=== PATIENT | female | born 1950 | race African-American/Black ===

== ENCOUNTER → 2023-01-29 14:47 | Outpatient (BNVA) | payer MEDICARE, SELFPAY | PROVIDERS: PCP Internal Medicine; Visit Provider Nurse Practitioner Family | DX: R56.9 Unspecified convulsions (principal); F32.A Depression, unspecified | CPT/HCPCS: 99202 ==

== ENCOUNTER → 2023-03-04 15:13 | Outpatient (BNVA) | payer MEDICARE, SELFPAY | PROVIDERS: PCP Internal Medicine; Visit Provider Nurse Practitioner Family | DX: R42 Dizziness and giddiness (principal); R56.9 Unspecified convulsions; R06.83 Snoring; G47.9 Sleep disorder, unspecified; G47.19 Other hypersomnia | CPT/HCPCS: 99212 ==

== ENCOUNTER 2023-06-12 13:59 | Outpatient (AMB) | payer MEDICARE, SELFPAY ==
[2023-06-12 14:01] VITALS: BP 134/90; PULSE 61; O2SAT 97; BMI 24.2
--- NOTE | 2023-06-12 14:01 | A.OFFVIS_ITS ---
Intake Vital Signs 06/12/23 14:01 Height 5 ft 2 in Weight 132 lb 6 oz BMI 24.2 BP 134/90 H Blood Pressure Location Lt brachial Position Sitting Pulse 61 Pulse Source Pulse Oximeter Pulse Oximetry (%) 97 Oxygen Delivery Method Room Air Intake Visit Reasons: 3m follow up Seizure - Confirmed Intake Note: Pt presents as a 3 month f/u for seizures. Pt states I was supposed to have a sleep test but I didn't go. I had to get a pacemaker and then I had a mini stroke. So they did 2 ct scans and It didn't show anything. Pt states this was at [facility]. Pt states she feels dizzy lot and she sleeps alot. Nuclear Operations Specialist Required: No Allergies No Known Allergies Allergy (Verified 06/12/23 14:07) Medication List - Last Reconciled 06/12/23 by VICKIE Murphy brimonidine 0.2% 0 drps ophthalmic (eye) cholecalciferol (vitamin D3) 25 mcg PO DAILY dorzolamide-timolol 22.3-6.8 mg/mL mL ophthalmic (eye) escitalopram oxalate 15 mg (3 x 5 mg) PO DAILY 30 days folic acid 1 mg PO DAILY hydrochlorothiazide 12.5 mg PO DAILY lamotrigine 150 mg PO BID 90 days latanoprost 0.005% 0 drps ophthalmic (eye) levothyroxine mcg PO lisinopril 20 mg PO BID methotrexate sodium 20 mg PO QWEEK netarsudil 0.02% (Rhopressa) 1 drp ophthalmic (eye) QPM edlrx-7z-gyv-epa-fish oil [phone] mg caps PO simvastatin 40 mg PO BEDTIME vit C,Q-Ke-yngmw-lutein-zeaxan 250-90-40-1 mg (PreserVision AREDS-2) 1 tab PO BID HPI HPI Comments History of Present Illness Details 73-yr-old female presents for f/u visit. Pt endorses the following interval medical history changes: Pt reports that she underwent an uneventful pacemaker insertion in February d/t holter results showing intermittent 3rd degree heart block. Then, about a week after, she was dx'd w/ a small stroke following an episode of HTN SBP 160-200s- was diagnosed w/ a small stroke. Head CT was unremarkable. MRI was not done at the time d/t recent pacemaker insertion- however she is now scheduled for f/u head MRI. She was started on ASA- which she took until the initial prescription ran out. She denies any interval seizure activity. She was not able to do HST. Head CT, 04/04/23: FINDINGS: Social Media Marketing Analyst view findings, lines and tubes: None. BRAIN AND EXTRA-AXIAL SPACES: No parenchymal hemorrhage, midline shift, or mass effect. Encephalomalacia is noted in the anterior right frontal lobe, similar to prior. Torres-white matter differentiation is otherwise well preserved with no CT signs of acute infarct. Negative insular ribbon sign. Atherosclerotic vascular calcification of the carotid arteries but negative hyperdense vessel sign. Mild prominence of the ventricles and sulci consistent with parenchymal volume loss. Mild low-density white matter changes. No subarachnoid hemorrhage. No subdural or epidural collection. CALVARIUM, SKULL BASE, AND SOFT TISSUES: No fractures or suspicious bony lesions. Prior right frontal craniotomy. The paranasal sinuses and mastoid air cells are clear. Status-post bilateral lens extraction. The extracranial soft tissues are unremarkable. IMPRESSION: 1. No acute intracranial pathology. 2. Unchanged right frontal encephalomalacia. Head/neck CTA, 04/02/23: FINDINGS: CTA OF THE NECK: Arch: There is a two vessel aortic arch, with common origin of the brachiocephalic artery and left common carotid artery. There is mild atherosclerotic plaque of the aortic arch, but origins of the supra aortic vessels are patent. There is mild narrowing of the right subclavian artery origin due to calcified plaque. There is a focal kink in the proximal left subclavian artery. Right carotid system: Scattered calcification is seen along the common carotid without significant narrowing. There is retropharyngeal course of the distal common carotid. Minimal calcification is seen at the carotid bifurcation, though there is no significant ICA stenosis by NASCET criteria. Left carotid system: The left common carotid artery is normal in caliber with minimal calcification along the mid segment. Calcified plaque is seen at the carotid bifurcation and along the proximal ICA without significant stenosis by NASCET criteria. There is a stjpmi-almf-oqiyslve vertebral artery system. Right vertebral: There is moderate narrowing of the right vertebral artery origin due to calcified plaque. Beyond this, the extracranial vertebral is normal in caliber. Left vertebral: Patent. Other: Soft tissues and bones: No evidence of lymphadenopathy or mass. The thyroid is unremarkable. Visualized lung apices are clear. There is a pacemaker in the left anterior chest wall. Degenerative changes are seen in the cervical spine. CTA OF THE HEAD: Anterior circulation: Calcified plaque is seen along the intracranial ICAs without significant narrowing. The anterior cerebral arteries and bilateral M1 and proximal M2 segments are patent and normal in caliber. Posterior circulation: There is moderate narrowing of the right intradural vertebral due to calcified p laque. The left vertebral is normal in caliber appear the basilar artery, superior cerebellar arteries, and posterior cerebral arteries are patent and normal in caliber. Veins: Major dural venous sinuses are patent. Other: Soft tissues and bones: No midline shift or effacement of the basal cisterns. No space-occupying hemorrhage. There is encephalomalacia in the anterior right frontal lobe. No acute territorial loss of torres-white matter differentiation. There have been lens extractions bilaterally. No significant opacification in the paranasal sinuses or mastoid air cells. IMPRESSION: 1. There is no large vessel occlusion in the [place]. 2. There is moderate narrowing of the right vertebral artery origin as well as the intradural segment due to calcified plaque. Head CT, 04/02/23: FINDINGS: The visualized sinuses are free from disease. The ventricular system and subarachnoid spaces are within normal limits. Right frontal encephalomalacia is stable. There is no intracranial hemorrhage, mass effect, or midline shift. No intra or extra-axial fluid collections are identified. Right frontal craniotomy changes are seen. IMPRESSION: Stable chronic encephalomalacia. There is no acute intracranial abnormality. [facility] Medical History (Updated 06/12/23 @ 14:12 by Mimi Justin CMA) Aortic ectasia Arthritis Depression Dizziness Dyspnea on exertion HTN (hypertension) Hypothyroidism Surgical History (Updated 06/12/23 @ 14:12 by Mimi Justin CMA) History of brain surgery Pacemaker Family History Father Blindness Deaf Social History Alcohol intake: never Patient Tobacco Use Status: Never used Tobacco Review of Systems Const All systems reviewed & are unremarkable except as noted in HPI and below Physical Exam Vital Signs: Last Vital Signs Pulse 61 06/12/23 14:01 BP 134/90 H 06/12/23 14:01 Pulse Ox 97 06/12/23 14:01 Oxygen Delivery Method Room Air 06/12/23 14:01 BMI result Body Mass Index 24.2 Const General: cooperative and no acute distress Orientation/consciousness: patient oriented x3 HEENT Head: Yes normocephalic Resp Effort & Inspection: normal respiratory effort and able to speak in complete sentences Neuro General: patient oriented x3, gait normal and CN's II-XI intact bilaterally Cognition (Neuro): normal cognition Motor exam (neuro): 5/5 motor strength present throughout Psych Appearance: grossly normal Mental Status: mental status grossly normal Speech and movement: Normal speech and movement present Affect: normal affect Attitude: cooperative Thought process: Normal thought process present Thought content: Normal thought content present Insight: Good insight present (Psych) Judgement: Good judgement present (Psych) Assessment & Plan Assessment & Plan (1) Seizure: Code(s): R56.9 - Unspecified convulsions (2) Snoring: Code(s): R06.83 - Snoring (3) Sleep difficulties: Code(s): G47.9 - Sleep disorder, unspecified (4) Excessive daytime sleepiness: Code(s): G47.19 - Other hypersomnia Plan For ? mini-stroke: Reviewed [facility] ER notes and work-up. Resume ASA 81mg qhs. Brain MRI as scheduled. Pt again advised to undergo HST to assess for sleep apnea. For seizure: Continue Lamotrigine 150mg bid Reviewed recent lamotrigine level- normal. For mood and cognition: Continue Escitalopram 15mg qd. Monitor mood/depression. Monitor cognition. f/u in 3 months or sooner prn Medications: New aspirin at bedtime 81 mg PO DAILY 30 days 30 tabs 6RF Refilled lamotrigine 150 mg PO BID 90 days 180 tabs 1RF Coding Level of Care Code Est Pt Level 4 (35452) Diagnoses Seizure R56.9 Snoring R06.83 Sleep difficulties G47.9 Excessive daytime sleepiness G47.19
== END 2023-06-12 14:56 | disposition home or self-care (01) ==
PROVIDERS: Visit Provider Nurse Practitioner Family
DX: R56.9 Unspecified convulsions (principal); R06.83 Snoring; G47.9 Sleep disorder, unspecified; G47.19 Other hypersomnia
CPT/HCPCS: 99214

== ENCOUNTER → 2023-06-12 13:59 | Outpatient (BNVA) | payer MEDICARE, SELFPAY | PROVIDERS: Visit Provider Nurse Practitioner Family | DX: R56.9 Unspecified convulsions (principal); R06.83 Snoring; G47.9 Sleep disorder, unspecified; G47.19 Other hypersomnia | CPT/HCPCS: 99212 ==

== ENCOUNTER 2023-10-01 12:43 | Outpatient (AMB) | payer MEDICARE, SELFPAY ==
--- NOTE | 2023-10-01 13:01 | A.OFFVIS_ITS ---
Intake Vital Signs 10/01/23 13:02 Height 5 ft 2 in Weight 139 lb BMI 25.4 BP 130/92 H Blood Pressure Location Rt brachial Position Sitting Intake Visit Reasons: 3m follow up Seizure / LVM Intake Note: Patient presents for 3 month follow up seizure. Allergies No Known Allergies Allergy (Verified 10/01/23 13:03) Medication List - Last Reconciled 10/01/23 by VICKIE Murphy aspirin 81 mg PO DAILY 30 days brimonidine 0.2% 0 drps ophthalmic (eye) cholecalciferol (vitamin D3) 25 mcg PO DAILY dorzolamide-timolol 22.3-6.8 mg/mL mL ophthalmic (eye) escitalopram oxalate 15 mg (3 x 5 mg) PO DAILY 90 days folic acid 1 mg PO DAILY lamotrigine 150 mg PO BID 90 days latanoprost 0.005% 0 drps ophthalmic (eye) levothyroxine mcg PO methotrexate sodium 20 mg PO QWEEK netarsudil 0.02% (Rhopressa) 1 drp ophthalmic (eye) QPM eufyg-9g-soq-epa-fish oil [phone] mg caps PO simvastatin 40 mg PO BEDTIME vit C,S-Ux-tsyhb-lutein-zeaxan 250-90-40-1 mg (PreserVision AREDS-2) 1 tab PO BID HPI HPI Comments History of Present Illness Details 73-yr-old female presents for f/u visit. Pt has concerns today. Last week, pt ran out of her escitalopram d/t a delay in shipping form her mail order pharmacy. After being off the escitalopram for a few days, she strated to not feel well- nausea and dizziness. She did call the service late last Friday night (spoke to pt at 10:45pm)- and I requested a small refill through her local pharmacy on Sat 09/27 at 6:45am. She states she did call the service again to check on status of refill status and did not hear back from the covering clinician. Once she resumed the escitalopram on Sat 09/27, she started to feel better. She is also concerned that in the past I have not had available slots for urgent appointments- I did recognize this and let her know that we have made adjustments to my schedule to allow for more timely urgent visits. She did have a stroke f/u neurology consult at [facility] in May. She was advised to ungergo brain MRI as scheduled, which showed chronic microangiopathic ischemic changes as well as multiple foci c/w microhemorrhages, and known stable right frontal encephalomalacia and bilateral basal ganglia and cerebellar lacunar infarcts. She was referred to [facility] states she was unawrae of this. Recent CBC, CMP, TSH- NL. Lipids- NL Pt states 1 lab result ordered by [facility] is still pending- results posted but not viewable by me today via the [facility] portal. 08/13/23 12:04 Cholesterol 150 Triglycerides *75 HDL Cholesterol 54 LDL Cholesterol 81 Non HDL Cholestero l 96 She has been having headaches. She can still be dizzy- a couple of times of day- needs to rest No known interval seizures- she has been complaint w/ Lamotrigine. She has f/u with her fretted string instrument repairer next week. 07/15/23, Brain MRI w/o, at [facility]: IMPRESSION: 1. No acute/subacute infarct, mass, or other acute intracranial abnormality. 2. T2/FLAIR hyperintense foci in the white matter, nonspecific but most likely reflecting chronic small vessel disease, increased from prior. 3. Multiple foci of susceptibility artifact, consistent with chronic microhemorrhages. Single new focus of susceptibility artifact in the left occipital lobe. 4. Unchanged right frontal encephalomalacia and bilateral basal ganglia and cerebellar lacunar infarcts. [facility] Medical History (Updated 10/05/23 @ 19:58 by VICKIE Murphy) Arthritis Hypothyroidism Depression Aortic ectasia Dyspnea on exertion HTN (hypertension) Dizziness Surgical History Pacemaker History of brain surgery Family History Father Blindness Deaf Social History Alcohol intake: never Patient Tobacco Use Status: Never used Tobacco Review of Systems Const All systems reviewed & are unremarkable except as noted in HPI and below Physical Exam Vital Signs: Last Vital Signs BP 130/92 H 10/01/23 13:02 BMI result Body Mass Index 25.4 Const General: cooperative and no acute distress Orientation/consciousness: patient oriented x3 HEENT Head: Yes normocephalic Resp Effort & Inspection: normal respiratory effort and able to speak in complete sentences Neuro General: patient oriented x3, gait normal and CN's II-XI intact bilaterally Cognition (Neuro): normal cognition Motor exam (neuro): 5/5 motor strength present throughout Psych Appearance: grossly normal Mental Status: mental status grossly normal Speech and movement: Normal speech and movement present Affect: normal affect Attitude: cooperative Thought process: Normal thought process present Thought content: Normal thought content present Insight: Good insight present (Psych) Judgement: Good judgement present (Psych) Assessment & Plan Assessment & Plan (1) Seizure: Code(s): R56.9 - Unspecified convulsions (2) Depression: Code(s): F32.A - Depression, unspecified (3) Dizziness: Code(s): R42 - Dizziness and giddiness (4) H/O intracranial hemorrhage: Comment: s/p craniotomy in 1994 Code(s): Z86.79 - Personal history of other diseases of the circulatory system (5) H/O: CVA (cerebrovascular accident): Comment: bilateral basal ganglia and cerebellar lacunar infarcts Code(s): Z86.73 - Personal history of transient ischemic attack (TIA), and cerebral infarction without residual deficits Plan Reviewed recent [facility] work-up. Will request complete lab results. Pt advised to undergo sleep study, as untreated sleep apnea can be a/w stroke and HTN. Pt declines at this time. Continue ASA, statin. BP running w/ mildy elevated DBP- today 130/92. Pt states she will f/u w/ her fretted string instrument repairer next week. I did let pt know of memory care clinica referal from [facility]. For seizure: Continue Lamotrigine 150mg bid Recheck lamotrigine level For mood and cognition: Continue Escitalopram 15mg qd. Monitor mood/depression. Monitor cognition. f/u in 3 months or sooner prn Orders: Orders Lamotrigine Lamictal 10/01/23 R56.9 - Unspecified convulsions Medications: Changed From escitalopram oxalate 15 mg (3 x 5 mg) PO DAILY 30 days 90 tabs 3RF To escitalopram oxalate 15 mg (3 x 5 mg) PO DAILY 90 days 270 tabs 3RF Coding Level of Care Code Est Pt Level 4 (16708) Diagnoses Seizure R56.9 Depression F32.A Dizziness R42 H/O intracranial hemorrhage Z86.79 H/O: CVA (cerebrovascular accident) Z86.73
[2023-10-01 13:02] VITALS: BP 130/92; BMI 25.4
== END 2023-10-01 14:09 | disposition home or self-care (01) ==
PROVIDERS: PCP Internal Medicine; Visit Provider Nurse Practitioner Family
DX: R56.9 Unspecified convulsions (principal); F32.A Depression, unspecified; R42 Dizziness and giddiness; Z86.79 Personal history of other diseases of the circulatory system; Z86.73 Personal history of transient ischemic attack (TIA), and cerebral infarction without residual deficits
CPT/HCPCS: 99214

== ENCOUNTER → 2023-10-01 12:43 | Outpatient (BNVA) | payer MEDICARE, SELFPAY | PROVIDERS: PCP Internal Medicine; Visit Provider Nurse Practitioner Family | DX: R56.9 Unspecified convulsions (principal); R42 Dizziness and giddiness; F32.A Depression, unspecified; Z86.79 Personal history of other diseases of the circulatory system; Z86.73 Personal history of transient ischemic attack (TIA), and cerebral infarction without residual deficits | CPT/HCPCS: 99212 ==

== ENCOUNTER 2024-01-08 14:01 | Outpatient (AMB) | payer MEDICARE, SELFPAY ==
[2024-01-08 14:34] VITALS: BP 132/80; PULSE 83; O2SAT 98; BMI 26.0
--- NOTE | 2024-01-08 14:34 | A.OFFVIS_ITS ---
Intake Vital Signs 01/08/24 14:34 Height 5 ft 2 in Weight 142 lb BMI 26.0 BP 132/80 Blood Pressure Location Rt brachial Position Sitting Pulse 83 Pulse Source Pulse Oximeter Pulse Oximetry (%) 98 Oxygen Delivery Method Room Air Intake Visit Reasons: 3 mo f/u - Seizure-LVM Intake Note: Patient presents for 3 month follow up seizures. Patient has not had any seizure episodes, she states she has shortness of breath Allergies No Known Allergies Allergy (Verified 01/08/24 14:41) Medication List - Last Reconciled 01/08/24 by VICKIE Murphy aspirin 81 mg PO DAILY 30 days brimonidine 0.2% 0 drps ophthalmic (eye) carvedilol 6.25 mg PO BID cholecalciferol (vitamin D3) 25 mcg PO DAILY dorzolamide-timolol 22.3-6.8 mg/mL mL ophthalmic (eye) escitalopram oxalate 10 mg (2 x 5 mg) PO DAILY 90 days folic acid 1 mg PO DAILY lamotrigine 150 mg PO BID 90 days latanoprost 0.005% 0 drps ophthalmic (eye) levothyroxine mcg PO losartan 100 mg PO DAILY methotrexate sodium 20 mg PO QWEEK netarsudil 0.02% (Rhopressa) 1 drp ophthalmic (eye) QPM thsgd-5y-npb-epa-fish oil [id number] mg caps PO simvastatin 40 mg PO BEDTIME vit C,K-Bj-xqyyq-lutein-zeaxan 250-90-40-1 mg (PreserVision AREDS-2) 1 tab PO BID HPI HPI Comments History of Present Illness Details 73-yr-old female presents for f/u visit. Pt reports that her BP has been running high- up to 160/100. She has been working w/ Dr Joyner, who has been adjusting her BP regimen. She has just started on carvedilol 6.25mg bid 2 days ago. Today her BP is normotensive- 132/80, HR 83 . She can sometimes has a headache- head feels funny- this is usually a/w higher BP. She can sometimes have transient lightheadedness when moving quicker. She is wondering if she can decrease her escitalopram 15mg qam dose- feels her mood is better. She thinks that some of her mood issues were r/t thinking about the possibility of having to move into her dtrs home (in an in-law apartment)- which is close by, but she has lived in her home for many yrs. Her dtr will be adding an in-law apartment She does still activities of interest- enjoys gardening. She is planning to start walking again. Denies interval seizures. Compliant w/ lamotrigine. [facility] Medical History (Updated 10/05/23 @ 19:58 by VICKIE Murphy) Arthritis Hypothyroidism Depression Aortic ectasia Dyspnea on exertion HTN (hypertension) Dizziness Surgical History Pacemaker History of brain surgery Family History Father Blindness Deaf Social History Alcohol intake: never Patient Tobacco Use Status: Never used Tobacco Physical Exam Vital Signs: Last Vital Signs Pulse 83 01/08/24 14:34 BP 132/80 01/08/24 14:34 Pulse Ox 98 01/08/24 14:34 Oxygen Delivery Method Room Air 01/08/24 14:34 BMI result Body Mass Index 26.0 Const General: cooperative and no acute distress Orientation/consciousness: patient oriented x3 Resp Effort & Inspection: normal respiratory effort and able to speak in complete sentences Neuro General: patient oriented x3 Cranial nerves: Yes CN's II-XII intact bilaterally Cognition (Neuro): normal cognition Psych Appearance: grossly normal Mental Status: mental status grossly normal Speech and movement: Normal speech and movement present Affect: normal affect Attitude: cooperative Assessment & Plan Assessment & Plan (1) Seizure: Code(s): R56.9 - Unspecified convulsions (2) H/O: CVA (cerebrovascular accident): Comment: bilateral basal ganglia and cerebellar lacunar infarcts Code(s): Z86.73 - Personal history of transient ischemic attack (TIA), and cerebral infarction without residual deficits (3) H/O intracranial hemorrhage: Comment: s/p craniotomy in 1994 Code(s): Z86.79 - Personal history of other diseases of the circulatory system (4) Depression: Code(s): F32.A - Depression, unspecified Plan For h/o stroke:. Reviewed rationale for sleep study, as untreated sleep apnea can be a/w stroke and HTN. Pt declines at this time. Continue ASA, statin. Lipid apnel, 07/2023- WNL. BP is normotensive today. F/u w/ her dance coach as scheduled. For seizure: Continue Lamotrigine 150mg bid. Again recheck lamictal level. For mood and cognition: May reduce Escitalopram [id number] qd to 10mg qd. Monitor mood/depression. Monitor cognition. ? f/u in 3-6 months or sooner prn Medications: Changed From escitalopram oxalate 15 mg (3 x 5 mg) PO DAILY 90 days 270 tabs 3RF To escitalopram oxalate 10 mg (2 x 5 mg) PO DAILY 180 tabs 3RF 90 days Coding Level of Care Code Est Pt Level 4 (53562) Diagnoses Seizure R56.9 H/O: CVA (cerebrovascular accident) Z86.73 H/O intracranial hemorrhage Z86.79 Depression F32.A
== END 2024-01-08 15:20 | disposition home or self-care (01) ==
LOC: HO.HSMS 14:01
PROVIDERS: PCP Internal Medicine; Visit Provider Nurse Practitioner Family
DX: R56.9 Unspecified convulsions (principal); Z86.73 Personal history of transient ischemic attack (TIA), and cerebral infarction without residual deficits; Z86.79 Personal history of other diseases of the circulatory system; F32.A Depression, unspecified
CPT/HCPCS: 99214

== ENCOUNTER → 2024-01-08 14:01 | Outpatient (BNVA) | payer MEDICARE, SELFPAY | PROVIDERS: PCP Internal Medicine; Visit Provider Nurse Practitioner Family | DX: R56.9 Unspecified convulsions (principal); F32.A Depression, unspecified; Z86.73 Personal history of transient ischemic attack (TIA), and cerebral infarction without residual deficits; Z86.79 Personal history of other diseases of the circulatory system; Z79.82 Long term (current) use of aspirin; Z79.899 Other long term (current) drug therapy | CPT/HCPCS: 99212 ==

== ENCOUNTER 2024-02-26 11:54 | Outpatient (REF) | payer MEDICARE, SELFPAY ==
[2024-02-29 21:54] LABS: Lamotrigine Lamictal 6.7 mcg/mL (2.5-15.0)
== END 2024-02-26 11:55 | disposition home or self-care (01) ==
LOC: HO.HKASLDS 11:54
PROVIDERS: Visit Provider Nurse Practitioner Family
DX: R56.9 Unspecified convulsions (principal); Z79.899 Other long term (current) drug therapy
CPT/HCPCS: 36415; 80175

== ENCOUNTER 2024-05-12 10:41 | Outpatient (AMB) | payer MEDICARE, SELFPAY ==
--- NOTE | 2024-05-12 10:42 | MHC.OFFVIS ---
Vital Signs 05/12/24 10:43 Height 5 ft 2 in Weight 142 lb BMI 26.0 BP 132/98 H Blood Pressure Location Rt brachial Position Sitting Pulse 60 Pulse Source Pulse Oximeter Pulse Oximetry (%) 100 Oxygen Delivery Method Room Air Intake Visit Reasons: Follow up Seizure-Lvm Intake Note: Patient presents for follow up seizures. patient states her head is weird and still feeling dizzy. Allergies No Known Allergies Allergy (Verified 05/12/24 10:53) Medication List - Last Reconciled 05/12/24 by VICKIE Murphy aspirin 81 mg PO DAILY 30 days brimonidine 0.2% 0 drps ophthalmic (eye) carvedilol 6.25 mg PO BID cholecalciferol (vitamin D3) 25 mcg PO DAILY dorzolamide-timolol 22.3-6.8 mg/mL mL ophthalmic (eye) escitalopram oxalate 5 mg PO DAILY 90 days folic acid 1 mg PO DAILY lamotrigine 150 mg PO BID 90 days latanoprost 0.005% 0 drps ophthalmic (eye) levothyroxine mcg PO losartan 100 mg PO DAILY methotrexate sodium 20 mg PO QWEEK netarsudil 0.02% (Rhopressa) 1 drp ophthalmic (eye) QPM amnka-7l-iiq-epa-fish oil [phone] mg caps PO simvastatin 40 mg PO BEDTIME vit C,I-Mi-xsbna-lutein-zeaxan 250-90-40-1 mg (PreserVision AREDS-2) 1 tab PO BID HPI Comments Details: 74-yr-old female presents for f/u visit. Pt reports that her BP has not been as well-controlled and having episodes of heart racing. Has had BP med changes. Recently was scheduled for stress test but could not do a stress test d/t her seizure tx. Instead, she will have a coronary CT scan and f/u echocardiogram. They have asked her to increase her fluid intake, which she has done. Pt reports she is having more dizziness- feels like her head is fully spinning. This can happen anytime. Not triggered by standing up or rolling over. She is eating and drinking ok. She states she is sleeping too much . May not sleep well at night as she has to wake up at night to void and then cannot fall back asleep. But then she falls asleep during the day for a few hours. She states she has been told she snores. She thinks maybe she had a sleep study or an ambulatory EEG. Denies any recent seizure activity. She feels the escitalopram is not doing anything. She is not sure if she really needs an anti-depressant at this point. [facility] Medical History (Updated 10/05/23 @ 19:58 by VICKIE Murphy) Arthritis Hypothyroidism Depression Aortic ectasia Dyspnea on exertion HTN (hypertension) Dizziness Surgical History Pacemaker History of brain surgery Family History Father Blindness Deaf Social History Alcohol intake: never Patient Tobacco Use Status: Never used Tobacco Review of Systems Const All systems reviewed & are unremarkable except as noted in HPI and below Physical Exam Vital Signs: Last Vital Signs Pulse 60 05/12/24 10:43 BP 132/98 H 05/12/24 10:43 Pulse Ox 100 05/12/24 10:43 Oxygen Delivery Method Room Air 05/12/24 10:43 BMI result Body Mass Index 26.0 Const General: cooperative and no acute distress Orientation/consciousness: patient oriented x3 HEENT Head: Yes normocephalic Resp Effort & Inspection: normal respiratory effort and able to speak in complete sentences Neuro General: patient oriented x3, gait normal and CN's II-XI intact bilaterally Cognition (Neuro): normal cognition Motor exam (neuro): 5/5 motor strength present throughout Psych Appearance: grossly normal Mental Status: mental status grossly normal Speech and movement: Normal speech and movement present Affect: normal affect Attitude: cooperative Thought process: Normal thought process present Thought content: Normal thought content present Insight: Good insight present (Psych) Judgement: Good judgement present (Psych) Assessment & Plan Assessment & Plan (1) Seizure: Code(s): R56.9 - Unspecified convulsions Category: Medical (2) Depression: Code(s): F32.A - Depression, unspecified Category: Medical (3) Dizziness: Code(s): R42 - Dizziness and giddiness Category: Medical Plan For seizure: Continue Lamotrigine 150mg bid. Last Lamotrigene level- 6.7 NL. Recheck lamictal level bafore f/u appt. ? For mood and cognition: May reduce Escitalopram 10mg qd to 5mg qd x's 1 month, then 5mg qod x's 1 month, then stop- written instructions shared w/ pt.. Monitor mood/depression. Monitor cognition. For h/o stroke, HTN, dizziness:. Suggested pt undergo sleep study, as untreated sleep apnea can be a/w stroke and HTN, as pt declines at this time as she has too many appointements at this time. Continue ASA, statin, BP regimen. 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 ? f/u in 6 months or sooner prn Orders: Orders Lamotrigine Lamictal Today R56.9 - Unspecified convulsions Medications: Changed From escitalopram oxalate 10 mg (2 x 5 mg) PO DAILY 90 days 180 tabs 3RF To escitalopram oxalate 1 tab daily x's 1 month, and then 1 tab every other day x's 1 month, then stop. 5 mg PO DAILY 90 days 90 tabs 3RF Refilled lamotrigine 150 mg PO BID 90 days 180 tabs 1RF Coding Level of Care Code Est Pt Level 4 (96303) Diagnoses Seizure R56.9 Depression F32.A Dizziness R42
[2024-05-12 10:43] VITALS: BP 132/98; PULSE 60; O2SAT 100; BMI 26.0
== END 2024-05-12 11:57 | disposition home or self-care (01) ==
PROVIDERS: PCP Internal Medicine; Visit Provider Nurse Practitioner Family
DX: R56.9 Unspecified convulsions (principal); F32.A Depression, unspecified; R42 Dizziness and giddiness
CPT/HCPCS: 99214

== ENCOUNTER → 2024-05-12 10:41 | Outpatient (BNVA) | payer MEDICARE, SELFPAY | PROVIDERS: PCP Internal Medicine; Visit Provider Nurse Practitioner Family | DX: R56.9 Unspecified convulsions (principal); F32.A Depression, unspecified; R42 Dizziness and giddiness | CPT/HCPCS: 99212 ==

== ENCOUNTER 2024-08-19 08:57 | Outpatient (AMB) | payer MEDICARE, SELFPAY ==
[2024-08-19 09:22] VITALS: BP 114/82; BMI 25.2
--- NOTE | 2024-08-19 09:22 | MHC.OFFVIS ---
Vital Signs 08/19/24 09:22 Height 5 ft 2 in Weight 138 lb BMI 25.2 BP 114/82 Blood Pressure Location Rt brachial Position Sitting Intake Visit Reasons: Follow Up Intake Note: Patient presents for follow up. Allergies No Known Allergies Allergy (Verified 08/19/24 09:24) Medication List - Last Reconciled 08/19/24 by VICKIE Murphy aspirin 81 mg PO DAILY 30 days brimonidine 0.2% 0 drps ophthalmic (eye) carvedilol 6.25 mg PO BID carvedilol 25 mg PO BID cholecalciferol (vitamin D3) 25 mcg PO DAILY dorzolamide-timolol 22.3-6.8 mg/mL mL ophthalmic (eye) escitalopram oxalate 5 mg PO DAILY 90 days folic acid 1 mg PO DAILY gabapentin 100 mg PO DAILY lamotrigine 150 mg PO BID 90 days latanoprost 0.005% 0 drps ophthalmic (eye) levothyroxine mcg PO losartan 100 mg PO DAILY methotrexate sodium 20 mg PO QWEEK netarsudil 0.02% (Rhopressa) 1 drp ophthalmic (eye) QPM ingyb-2d-vtm-epa-fish oil [phone] mg caps PO simvastatin 40 mg PO BEDTIME tramadol 50 mg PO DAILY vit C,L-Rj-vctcz-lutein-zeaxan 250-90-40-1 mg (PreserVision AREDS-2) 1 tab PO BID HPI Comments Details: 74-yr-old female presents for f/u visit. Pt reports 5 weeks ago, she underwent planned CABG x?s 4 on 07/15/24 at [facility]. Pt did have post-hospital rehab stay, and has since been discharged home. She is doing out-pt cardiac rehab. Pt does not drive- so takes senior PVTA. She does note that she is still having some muscular chest pain? especially with increased activity, such as cooking. She can cook but the clean up is more difficult. She has recently met w/ [facility], though she is not sure if she afford assistance. Pt reports she is feeling more depressed due to her health issues and needing to move into her dtr's home. She had weaned off the escitalopram after the last visit here, but it was restarted when in rehab.? She is asking if we can retry her back on 20mg qd dose. She denies any interval seizure activity. Is compliant w/ Lamotrigine. [facility] Medical History Arthritis Hypothyroidism Depression Aortic ectasia Dyspnea on exertion HTN (hypertension) Dizziness Surgical History H/O heart surgery Pacemaker History of brain surgery Family History Father Blindness Deaf Social History Alcohol intake: never Patient Tobacco Use Status: Never used Tobacco Physical Exam Vital Signs: Last Vital Signs BP 114/82 08/19/24 09:22 BMI result Body Mass Index 25.2 Const General: cooperative and no acute distress Orientation/consciousness: patient oriented x3 HEENT Head: Yes normocephalic Resp Effort & Inspection: normal respiratory effort and able to speak in complete sentences Neuro General: patient oriented x3, gait normal and CN's II-XI intact bilaterally Cognition (Neuro): normal cognition Motor exam (neuro): 5/5 motor strength present throughout Psych Appearance: grossly normal Mental Status: mental status grossly normal Speech and movement: Normal speech and movement present Affect: normal affect Attitude: cooperative Assessment & Plan Assessment & Plan (1) Seizure: Code(s): R56.9 - Unspecified convulsions Category: Medical (2) Depression: Code(s): F32.A - Depression, unspecified Category: Medical Plan For seizure: Continue Lamotrigine 150mg bid. Will request recent Lamotrigene level report- pt states did at [facility] 2 days ago.. ? For mood and cognition: Increase escitalopram from 10mg qd to 15mg qd x's 4 weeks, then 20mg qd- pt has previously tolertaed this dose well. Monitor mood/depression. Monitor cognition. For h/o stroke, HTN, dizziness:. Futuire considerations- sleep study, pt has previously declined d/t other medical visits/transportation. Continue ASA, statin, BP regimen per cardiology. Continue cardiac rehab. Pace activities. 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 ? f/u in 4 months or sooner prn Medications: New escitalopram oxalate 15mg daily x's 4 weeks, then 20mg daily 15 - 20 mg (1.5 - 2 x 10 mg) PO DAILY 180 tabs 1RF 90 days Refilled lamotrigine 150 mg PO BID 180 tabs 1RF 90 days Coding Level of Care Code Est Pt Level 4 (73234) Diagnoses Seizure R56.9 Depression F32.A
== END 2024-08-19 10:19 | disposition home or self-care (01) ==
PROVIDERS: PCP Internal Medicine; Visit Provider Nurse Practitioner Family
DX: R56.9 Unspecified convulsions (principal); F32.A Depression, unspecified
CPT/HCPCS: 99214

== ENCOUNTER → 2024-08-19 08:57 | Outpatient (BNVA) | payer MEDICARE, SELFPAY | PROVIDERS: PCP Internal Medicine; Visit Provider Nurse Practitioner Family | DX: R56.9 Unspecified convulsions (principal); F32.A Depression, unspecified; R07.9 Chest pain, unspecified; Z95.1 Presence of aortocoronary bypass graft | CPT/HCPCS: 99212 ==

== ENCOUNTER 2024-12-07 13:49 | Outpatient (AMB) | payer MEDICARE, SELFPAY ==
--- NOTE | 2024-12-07 14:08 | MHC.OFFVIS ---
Vital Signs 12/07/24 14:19 Height 5 ft 2 in Weight 142 lb BMI 26.0 BP 140/90 H Blood Pressure Location Lt brachial Position Sitting Pulse 60 Pulse Source Pulse Oximeter Pulse Oximetry (%) 97 Oxygen Delivery Method Room Air Intake Visit Reasons: Follow up Intern Architect Required: No Allergies No Known Allergies Allergy (Verified 12/07/24 14:13) HPI Comments Details: 74-yr-old female presents for f/u visit of seizure and depression. 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 Patient reports since the last visit, she has had worsening dizziness. She states that at [facility], she had a severe bout of dizziness, and was evaluated at [facility] ER. 09/23/[address] did not show any acute changes, only chronic mild prominence of the ventricles and sulci consistent with parenchymal volume loss, mild low-density white matter changes, Post right frontal craniotomy. Metallic foci adjacent to the right frontal bone. 09/22/2024, CT angio head/neck showed severe stenosis in early right superior division MCA branch arising from the right MCA bifurcation, a 3 mm aneurysm is present immediately distal to the stenosis. Proximal right vertebral artery calcification with mild stenosis. EKG was interpreted as nonacute with pacemaker. CXR showed increased markings bilaterally thought to be secondary to poor inspiration we cardiomegaly but without signs of pneumonia. Patient was unable to undergo MRI, as admission occurred during the holiday, and they could not confirm pt's pacemaker MRI compatibility. Patient was advised to continue aspirin, simvastatin, and resume carvedilol and losartan.. Patient was to follow up with Neurology upon discharge. Patient states she is scheduled for brain MRI later this month, but is unable to state who referred her for this. She does not believe she has had a follow-up neurology/neurovascular consult. She is continuing to do her cardiac rehab. Patient states that she is continuing to have episodes of dizziness. The dizziness feels like an off-balance sensation. Like she will fall over. She does not use cane or walking device. She has not recently done vestibular therapy. She denies any interval seizure activity. Her last lamotrigine level in February 2024 was WNL. Patient would also like to discuss weaning off of escitalopram. She is currently taking 20 mg per day. She does not think she needs to take this any longer, as she denies clear signs of depression. She denies loss of interest in usual activities. She does have some sadness and depressed mood related to needing to move out of her home and into her daughter's home, however patient feels that this is appropriate response to the situation. 08/19/2024 HPI: Pt reports 5 weeks ago, she underwent planned CABG x?s 4 on 07/15/24 at [facility]. Pt did have post-hospital rehab stay, and has since been discharged home. She is doing out-pt cardiac rehab. Pt does not drive- so takes senior PVTA. She does note that she is still having some muscular chest pain? especially with increased activity, such as cooking. She can cook but the clean up is more difficult. She has recently met w/ [facility], though she is not sure if she afford assistance. Pt reports she is feeling more depressed due to her health issues and needing to move into her dtr's home. She had weaned off the escitalopram after the last visit here, but it was restarted when in rehab.? She is asking if we can retry her back on 20mg qd dose. She denies any interval seizure activity. Is compliant w/ Lamotrigine. [facility] Medical History (Updated 12/07/24 @ 16:33 by VICKIE Murphy) Arthritis Hypothyroidism Depression Aortic ectasia Dyspnea on exertion HTN (hypertension) Dizziness Surgical History H/O heart surgery Pacemaker History of brain surgery Family History Father Blindness Deaf Social History Alcohol intake: never Patient Tobacco Use Status: Never used Tobacco Physical Exam Vital Signs: Last Vital Signs Pulse 60 12/07/24 14:19 BP 140/90 H 12/07/24 14:19 Pulse Ox 97 12/07/24 14:19 Oxygen Delivery Method Room Air 12/07/24 14:19 BMI result Body Mass Index 26.0 Const General: cooperative and no acute distress Orientation/consciousness: patient oriented x3 HEENT Head: Yes normocephalic Resp Effort & Inspection: normal respiratory effort and able to speak in complete sentences Neuro Other: Gaze evoked nystagmus test: Elicits feeling unwell, not quite dizziness per patient. General: patient oriented x3, gait normal and CN's II-XI intact bilaterally Cranial nerves: Yes Bilaterally intact EOM present and Yes Nystagmus not present Cognition (Neuro): normal cognition Motor exam (neuro): 5/5 motor strength present throughout Psych Appearance: grossly normal Mental Status: mental status grossly normal Speech and movement: Normal speech and movement present Affect: normal affect Attitude: cooperative Results Reviewed Results Reviewed: 09/22/2024, CT Angio Head Hyperacute Stroke, CT Angio Neck Hyperacute Stroke At [facility] COMPARISON: Noncontrast CT head performed concurrently. FINDINGS: CTA OF THE NECK: Arch: There is a two vessel aortic arch, with common origin of the brachiocephalic artery and left common carotid artery. There is mild atherosclerotic plaque of the aortic arch, but origins of the supra aortic vessels are patent. Right carotid system: The common carotid and cervical internal carotid arteries are patent. No stenosis (0%) by NASCET criteria. Scattered right CCA calcification. Left carotid system: The common carotid and cervical internal carotid arteries are patent. There is calcified atherosclerotic plaque at the carotid bifurcation, but no ICA stenosis (0%) by NASCET criteria. Scattered left CCA calcification. Right vertebral: Calcification at the origin with mild stenosis. Left vertebral: Patent. Other: Soft tissues and bones: No evidence of lymphadenopathy or mass. The thyroid is unremarkable. Trace right pleural effusion. Degenerative changes of the cervical spine. CTA OF THE HEAD: Anterior circulation: The intracranial internal carotid arteries are patent. Multifocal ICA calcifications are present. The ICA termini are maintained. The A1 and A2 segments of the anterior cerebral arteries are patent. * The M1 segment of the right middle cerebral artery is patent. M2 segments of the middle cerebral arteries are patent. There is severe stenosis of a separate superior division MCA branch with a 3 mm aneurysm distal to the stenosis. The branch distal to the aneurysm is patent. The M1 and M2 segments of the left middle cerebral artery are patent. Posterior circulation: Calcification in the proximal right vertebral artery is again noted with mild stenosis. The left vertebral artery is patent. The basilar artery and posterior cerebral arteries are patent. Veins: Major dural venous sinuses are patent. Other: Soft tissues and bones: A right frontal lobe resection cavity is present. Patchy regions of diminished density within the supratentorial white matter are nonspecific, but are compatible with chronic microangiopathic/small vessel ischemic change. There have been lens extractions bilaterally. Lobular opacity within the posterior left maxillary sinus. Periapical lucency related to the left second maxillary molar is noted, and this may indicate an odontogenic origin of the maxillary sinus opacification. A right frontoparietal craniotomy is present, and metallic foci are present within the right frontal bone adjacent to the orbit. IMPRESSION: 1. No acute intracranial large vessel occlusion. 2. There is severe stenosis of an early RIGHT superior division MCA branch arising from the right MCA bifurcation. A 3 mm aneurysm is present immediately distal to the stenosis. Neuro endovascular follow-up is recommended. 3. No hemodynamically-significant stenoses of the extracranial internal carotid and vertebral arteries. 09/23/2024, CT Head/Brain W/O Contrast At [facility] COMPARISON: Head CT dated 09/22/2024. FINDINGS: Supervisor Cured Meats view findings, lines and tubes: None. BRAIN AND EXTRA-AXIAL SPACES: Encephalomalacia is seen inferiorly in the right frontal lobe. No parenchymal hemorrhage, midline shift, or mass effect. Torres-white matter differentiation is otherwise well preserved without evidence of acute territorial infarct. Mild prominence of the ventricles and sulci consistent with parenchymal volume loss. Mild low-density white matter changes. No subarachnoid hemorrhage. No subdural or epidural collection. CALVARIUM, SKULL BASE, AND SOFT TISSUES: No fractures or suspicious bony lesions. Status post right frontal craniotomy. The paranasal sinuses and mastoid air cells are clear. Visualized orbits and globes are intact. The extracranial soft tissues are unremarkable. IMPRESSION: No evidence of intracranial hemorrhage, acute territorial infarct or extra-axial fluid collection. Assessment & Plan Assessment & Plan (1) Dizziness: Code(s): R42 - Dizziness and giddiness Category: Medical (2) Seizure: Code(s): R56.9 - Unspecified convulsions Category: Medical (3) Depression: Code(s): F32.A - Depression, unspecified Category: Medical (4) Intracerebral aneurysm: Code(s): I67.1 - Cerebral aneurysm, nonruptured Category: Medical Plan For h/o stroke, HTN, dizziness: Reviewed Aug 2024 hospital notes and workup, which was notable right superior division MCA branch severe stenosis and a 3 mm aneurysm distal to this stenosis. Reviewed red flag signs to seek urgent medical care- such as worse headache of her life. We will request [facility] neuro endovascular surgical consult. Continue ASA, statin, BP regimen per cardiology. Continue cardiac rehab. Pace activities. 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 Future considerations- sleep study, pt has previously declined d/t other medical visits/transportation. For seizure: Continue Lamotrigine 150mg bid. Check CBC, CMP, lamotrigine level. ? For mood and cognition: Patient may slowly wean off of escitalopram- 15 mg q.d. x4 weeks, then 10 mg q.d. x4 weeks, then 5 mg q.d. x4 weeks, then stop. Monitor mood/depression. Monitor cognition. Will follow-up upon review of above and patient to follow-up in clinic in 4-6 months or sooner prn. Orders: Orders Lamotrigine Lamictal Today R42 - Dizziness and giddiness, R56.9 - Unspecified convulsions Complete Blood Count Auto Diff Today R42 - Dizziness and giddiness, R56.9 - Unspecified convulsions Comprehensive Met. Panel Today R42 - Dizziness and giddiness, R56.9 - Unspecified convulsions Referrals Vascular Neurology Referral I67.1 - Cerebral aneurysm, nonruptured, R42 - Dizziness and giddiness, R56.9 - Unspecified convulsions, Z86.73 - Personal history of transient ischemic attack (TIA), and cerebral infarction without residual deficits, Z86.79 - Personal history of other diseases of the circulatory system Medications: New escitalopram oxalate 15mg (5mg + 10mg tab) daily x's 4 weeks, then 10mg daily x's 4 weeks, then 5mg daily x's 4 weeks, then stop, orally daily; 12 weeks 84 tabs 0RF Refilled lamotrigine 150 mg PO BID 90 days 180 tabs 1RF Discontinued escitalopram oxalate 15mg daily x's 4 weeks, then 20mg daily Discontinued Reason: Doctor's Order 15 - 20 mg (1.5 - 2 x 10 mg) PO DAILY 90 days 180 tabs 1RF Coding Level of Care Code Est Pt Level 4 (14010) Diagnoses Dizziness R42 Seizure R56.9 Depression F32.A Intracerebral aneurysm I67.1
[2024-12-07 14:19] VITALS: BP 140/90; PULSE 60; O2SAT 97; BMI 26.0
== END 2024-12-07 15:03 | disposition home or self-care (01) ==
PROVIDERS: PCP Internal Medicine; Visit Provider Nurse Practitioner Family
DX: R42 Dizziness and giddiness (principal); R56.9 Unspecified convulsions; F32.A Depression, unspecified; I67.1 Cerebral aneurysm, nonruptured
CPT/HCPCS: 99214

== ENCOUNTER → 2024-12-07 13:49 | Outpatient (BNVA) | payer MEDICARE, SELFPAY | PROVIDERS: PCP Internal Medicine; Visit Provider Nurse Practitioner Family | DX: R42 Dizziness and giddiness (principal); R56.9 Unspecified convulsions; F32.A Depression, unspecified; I67.1 Cerebral aneurysm, nonruptured | CPT/HCPCS: 99212 ==

== ENCOUNTER 2025-06-06 13:05 | Outpatient (AMB) | payer MEDICARE, SELFPAY ==
[2025-06-06 13:07] VITALS: BP 128/82; PULSE 86; O2SAT 97; BMI 25.3
--- NOTE | 2025-06-06 13:07 | A.OFFVIS_ITS ---
Vital Signs 06/06/25 13:07 Height 5 ft 2 in Weight 138 lb 8 oz BMI 25.3 BP 128/82 Blood Pressure Location Rt brachial Position Sitting Pulse 86 Pulse Source Pulse Oximeter Pulse Oximetry (%) 97 Oxygen Delivery Method Room Air Intake Visit Reasons: 6 mo follow up Intake Note: Patient presents follow up Seizure medication. Hand I Tube Bender Required: No Allergies No Known Allergies Allergy (Verified 06/06/25 13:09) Medication List - Last Reconciled 06/06/25 by VICKIE Murphy aspirin 81 mg PO DAILY 30 days brimonidine 0.2% 0 drps ophthalmic (eye) carvedilol 6.25 mg PO BID carvedilol 25 mg PO BID cholecalciferol (vitamin D3) 25 mcg PO DAILY dorzolamide-timolol 22.3-6.8 mg/mL mL ophthalmic (eye) escitalopram oxalate 5 mg PO DAILY 30 days folic acid 1 mg PO DAILY lamotrigine 150 mg PO BID 90 days latanoprost 0.005% 0 drps ophthalmic (eye) levothyroxine mcg PO losartan 100 mg PO DAILY methotrexate sodium 20 mg PO QWEEK netarsudil 0.02% (Rhopressa) 1 drp ophthalmic (eye) QPM iyddp-0w-jzx-epa-fish oil [phone] mg caps PO simvastatin 40 mg PO BEDTIME vit C,R-Lz-jgfyz-lutein-zeaxan 250-90-40-1 mg (PreserVision AREDS-2) 1 tab PO BID HPI Comments Details: 74-yr-old female presents for f/u visit of seizure and depression. 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 12/21/2024, MRI brain with and without contrast, at [facility]: IMPRESSION: 1. No acute/subacute infarct, mass, hemorrhage, abnormal enhancement, or other acute intracranial abnormality. 2. Stable mild to mode rate T2/FLAIR hyperintense foci in the white matter, nonspecific but most likely reflecting chronic small vessel disease. 3. Multiple foci of susceptibility signal which could be related to chronic microhemorrhages in the setting of hypertension or cerebral amyloid angiopathy in the setting of a normotensive patient, clinical correlation is advised. Patient denies any interval seizure activity. She is compliant with the lamotrigine. Patient has slowly weaning off of escitalopram, now on escitalopram 5 mg daily for the past few months. She states she does not know if they escitalopram is doing for her. She believes that by the beginning of June, she will be finally moving out of her home of 30 years, as her , into an in-law apartment that her daughter has built for her. She states she has headache today, for that she has not had a headache can quite some time. Usually she does not take anything for this, she just tries to rest in a quiet space. She does continue to have episodes of dizziness, like an off-balance or as if she is being spun sensation. She may feel like she will fall, but typically does not fall. She did have a recent fall, which she attributes to losing her balance due to poor footing while walking in her backyard. She states she is drinking 6 glasses of water per day. She states she does not completely avoid salt. Patient has not yet had neuro endovascular consult. 12/07/2024 Patient reports since the last visit, she has had worsening dizziness. She states that at , she had a severe bout of dizziness, and was ev aluated at [facility] Center ER. 09/23/[address] did not show any acute changes, only chronic mild prominence of the ventricles and sulci consistent with parenchymal volume loss, mild low-density white matter changes, Post right frontal craniotomy. Metallic foci adjacent to the right frontal bone. 09/22/2024, CT angio head/neck showed severe stenosis in early right superior division MCA branch arising from the right MCA bifurcation, a 3 mm aneurysm is present immediately distal to the stenosis. Proximal right vertebral artery calcification with mild stenosis. EKG was interpreted as nonacute with pacemaker. CXR showed increased markings bilaterally thought to be secondary to poor inspiration we cardiomegaly but without signs of pneumonia. Patient was unable to undergo MRI, as admission occurred during the holiday, and they could not confirm pt's pacemaker MRI compatibility. Patient was advised to continue aspirin, simvastatin, and resume carvedilol and losartan.. Patient was to follow up with Neurology upon discharge. Patient states she is scheduled for brain MRI later this month, but is unable to state who referred her for this. She does not believe she has had a follow-up neurology/neurovascular consult. She is continuing to do her cardiac rehab. Patient states that she is continuing to have episodes of dizziness. The dizziness feels like an off-balance sensation. Like she will fall over. She does not use cane or walking device. She has not recently done vestibular therapy. She denies any interval seizure activity. Her last lamotrigine level in February 2024 was WNL. Patient would also like to discuss weaning off of escitalopram. She is currently taking 20 mg per day. She does not think she needs to take this any longer, as she denies clear signs of depression. She denies loss of interest in usual activities. She does have some sadness and depressed mood related to needing to move out of her home and into her daughter's home, however patient feels that this is appropriate response to the situation. 08/19/2024 HPI: Pt reports 5 weeks ago, she underwent planned CABG x?s 4 on 07/15/24 at [facility]. Pt did have post-hospital rehab stay, and has since been discharged home. She is doing out-pt cardiac rehab. Pt does not drive- so takes senior [employer]. She does note that she is still having some muscular chest pain? especially with increased activity, such as cooking. She can cook but the clean up is more difficult. She has recently met w/ [facility], though she is not sure if she afford assistance. Pt reports she is feeling more depressed due to her health issues and needing to move into her dtr's home. She had weaned off the escitalopram after the last visit here, but it was restarted when in rehab.? She is asking if we can retry her back on 20mg qd dose. She denies any interval seizure activity. Is compliant w/ Lamotrigine. [facility] Medical History Arthritis Hypothyroidism Depression Aortic ectasia Dyspnea on exertion HTN (hypertension) Dizziness Surgical History H/O heart surgery Pacemaker History of brain surgery Family History Father Blindness Deaf Social History Alcohol intake: never Patient Tobacco Use Status: Never used Tobacco Physical Exam Vital Signs: Last Vital Signs Pulse 86 06/06/25 13:07 BP 128/82 06/06/25 13:07 Pulse Ox 97 06/06/25 13:07 Oxygen Delivery Method Room Air 06/06/25 13:07 BMI result Body Mass Index 25.3 Const General: cooperative and no acute distress Orientation/consciousness: patient oriented x3 HEENT Head: Yes normocephalic Resp Effort & Inspection: normal respiratory effort and able to speak in complete sentences Neuro General: patient oriented x3, gait normal and CN's II-XI intact bilaterally Cranial nerves: Yes Bilaterally intact EOM present and Yes Nystagmus not present Cognition (Neuro): normal cognition Motor exam (neuro): 5/5 motor strength present throughout Psych Appearance: grossly normal Mental Status: mental status grossly normal Speech and movement: Normal speech and movement present Affect: normal affect Attitude: cooperative Results Reviewed Results Reviewed: 09/22/2024, CT Angio Head Hyperacute Stroke, CT Angio Neck Hyperacute Stroke At [facility] COMPARISON: Noncontrast CT head performed concurrently. FINDINGS: CTA OF THE NECK: Arch: There is a two vessel aortic arch, with common origin of the brachiocephalic artery and left common carotid artery. There is mild atherosclerotic plaque of the aortic arch, but origins of the supra aortic vessels are patent. Right carotid system: The common carotid and cervical internal carotid arteries are patent. No stenosis (0%) by NASCET criteria. Scattered right CCA calcification. Left carotid system: The common carotid and cervical internal carotid arteries are patent. There is calcified atherosclerotic plaque at the carotid bifurcation, but no ICA stenosis (0%) by NASCET criteria. Scattered left CCA calcification. Right vertebral: Calcification at the origin with mild stenosis. Left vertebral: Patent. Other: Soft tissues and bones: No evidence of lymphadenopathy or mass. The thyroid is unremarkable. Trace right pleural effusion. Degenerative changes of the cervical spine. CTA OF THE HEAD: Anterior circulation: The intracranial internal carotid arteries are patent. Multifocal ICA calcifications are present. The ICA termini are maintained. The A1 and A2 segments of the anterior cerebral arteries are patent. * The M1 segment of the right middle cerebral artery is patent. M2 segments of the middle cerebral arteries are patent. There is severe stenosis of a separate superior division MCA branch with a 3 mm aneurysm distal to the stenosis. The branch distal to the aneurysm is patent. The M1 and M2 segments of the left middle cerebral artery are patent. Posterior circulation: Calcification in the proximal right vertebral artery is again noted with mild stenosis. The left vertebral artery is patent. The basilar artery and posterior cerebral arteries are patent. Veins: Major dural venous sinuses are patent. Other: Soft tissues and bones: A right frontal lobe resection cavity is present. Patchy regions of diminished density within the supratentorial white matter are nonspecific, but are compatible with chronic microangiopathic/small vessel ischemic change. There have been lens extractions bilaterally. Lobular opacity within the posterior left maxillary sinus. Periapical lucency related to the left second maxillary molar is noted, and this may indicate an odontogenic origin of the maxillary sinus opacification. A right frontoparietal craniotomy is present, and metallic foci are present within the right frontal bone adjacent to the orbit. IMPRESSION: 1. No acute intracranial large vessel occlusion. 2. There is severe stenosis of an early RIGHT superior division MCA branch arising from the right MCA bifurcation. A 3 mm aneurysm is present immediately distal to the stenosis. Neuro endovascular follow-up is recommended. 3. No hemodynamically-significant stenoses of the extracranial internal carotid and vertebral arteries. 09/23/2024, CT Head/Brain W/O Contrast At [facility] COMPARISON: Head CT dated 09/22/2024. FINDINGS: Stock Roller view findings, lines and tubes: None. BRAIN AND EXTRA-AXIAL SPACES: Encephalomalacia is seen inferiorly in the right frontal lobe. No parenchymal hemorrhage, midline shift, or mass effect. Torres-white matter differentiation is otherwise well preserved without evidence of acute territorial infarct. Mild prominence of the ventricles and sulci consistent with parenchymal volume loss. Mild low-density white matter changes. No subarachnoid hemorrhage. No subdural or epidural collection. CALVARIUM, SKULL BASE, AND SOFT TISSUES: No fractures or suspicious bony lesions. Status post right frontal craniotomy. The paranasal sinuses and mastoid air cells are clear. Visualized orbits and globes are intact. The extracranial soft tissues are unremarkable. IMPRESSION: No evidence of intracranial hemorrhage, acute territorial infarct or extra-axial fluid collection. Assessment & Plan Assessment & Plan (1) Dizziness: Code(s): R42 - Dizziness and giddiness Category: Medical (2) Seizure: Code(s): R56.9 - Unspecified convulsions Category: Medical (3) Depression: Code(s): F32.A - Depression, unspecified Category: Medical (4) Intracerebral aneurysm: Code(s): I67.1 - Cerebral aneurysm, nonruptured Category: Medical (5) H/O: CVA (cerebrovascular accident): Comment: bilateral basal ganglia and cerebellar lacunar infarcts Code(s): Z86.73 - Personal history of transient ischemic attack (TIA), and cerebral infarction without residual deficits Category: Medical (6) H/O intracranial hemorrhage: Comment: s/p craniotomy in 1994 Code(s): Z86.79 - Personal history of other diseases of the circulatory system Category: Medical Plan For h/o stroke, HTN, dizziness: Aug 2024 hospital notes and workup, were notable right superior division MCA branch severe stenosis and a 3 mm aneurysm distal to this stenosis. Reviewed red flag signs to seek urgent medical care- such as worse headache of her life. We will follow-up on request [facility] neuro endovascular surgical consult Continue ASA, statin, BP regimen per cardiology. * Patient currently normotensive Continue cardiac rehab exercises Pace activities. 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 Discussed sleep study, however patient is not interested at this time. Future considerations- sleep study, pt has previously declined d/t other medical visits/transportation. For seizure: Continue Lamotrigine 150mg bid. Check CBC, CMP, lamotrigine level today For mood and cognition: Patient advised to continue on escitalopram 5 mg daily for the next few months, as she will be moving from her home to her daughter's home in the near future. Monitor mood/depression. Monitor cognition. Consider MMSE at follow-up. Will follow-up upon review of above and patient to follow-up in clinic in 4-6 months or sooner prn. Medications: Refilled lamotrigine 150 mg PO BID 180 tabs 1RF 90 days Discontinued escitalopram oxalate Discontinued Reason: Doctor's Order 15mg (5mg + 10mg tab) daily x's 4 weeks, then 10mg daily x's 4 weeks, then 5mg daily x's 4 weeks, then stop, orally daily; 12 weeks 84 tabs 0RF Coding Level of Care Code Est Pt Level 4 (54128) Diagnoses Dizziness R42 Seizure R56.9 Depression F32.A Intracerebral aneurysm I67.1 H/O: CVA (cerebrovascular accident) Z86.73 H/O intracranial hemorrhage Z86.79
--- OUTSIDE RECORDS SUMMARY | 2025-06-06 13:16 | XMS_ITS | Clinical Summary ---
Author Organization [facility] Address [address] [place] [address] Care Team Providers Care Applied Researcher Name Role Phone Unavailable Primary Care Provider Unavailabl e Social History Tobacco Use Types Packs/Day Years Used Date Smoking Tobacco: Never Assessed Comments Unknown Sex and Gender Information Value Date Recorded Sex Assigned at Not on file Legal Sex Female 2:43 PM EDT Gender Identity Not on file Sexual Orientation Not on file Plan of Treatment Health Maintenance Due Date Last Done Comments Hepatitis C Virus Screening 1950 DTaP/Tdap/Td Vaccines (1 - Tdap) 1970 Mammogram 1991 Colonoscopy 1996 Pneumococcal Vaccines 50+ (1 of 1 - PCV) 2001 Zoster (Shingles) Vaccine (1 of 2) 2001 DXA Bone Density (Females,Ag es 65 and older) 2016 COVID-19 Vaccine ( - 2023-2 5 season) 2024 Influenza Vaccine 05/27/2025 RSV Vaccine 60 years and old er and Patients (1 - 1-dose 75+ series) 2026 Hepatitis B Vaccines Aged Out No long er eligible based on patient's age to complete this topic Insurance [address] [place], [place] [id number] MEDICARE
--- OUTSIDE RECORDS SUMMARY | 2025-06-06 13:16 | XMS_ITS | Clinical Summary ---
Author Organization [address] [place] [address] Address [address] [place] [address] Phone Care Team Providers Care Automatic Spooler Operator Name Role Phone Nora Riddle MD Primary Care Provider Allergies No known active allergies Medications aspirin 81 mg EC tablet Take 1 Tablet by mouth daily. Active brimonidine (ALPHAGAN) 0.2 % ophthalmic solution 1 Drop 2 times daily. Active cholecalciferol (VITAMIN D-3) 25 mcg (1,000 unit) tablet Take by mouth. Active dorzolamide-zoe lol, PF, 2-0.5 % dropperette apply to the eye. Active escitalopram (LEXAPRO) 5 mg tablet Take 3 Tablets by mouth daily. Active folic acid (FOLVITE) 1 mg tablet Take 1 mg by mouth daily. Active lamoTRIgine (LaMICtal) 150 mg tablet Take 150 mg by mouth 2 times daily. Active latanoprost (XALATAN) 0.005 % ophthalmic solution 1 Drop at bedtime. Active levothyroxine (SYNTHROID, LEVOTHROID) 100 mcg tablet Take 100 mcg by mouth 5 Times Weekly. Active methotrexate 2.5 mg tablet Take 6 Tablets by mouth once a week. On friday Active vit C/E/Zn/coppr/lut ein/zeaxan (PRESERVISION AREDS-2 ORAL) Take 1 Tablet by mouth 2 times daily. Active netarsudiL (Rhopressa) 0.02 % drops apply 1 Drop to the eye at bedtime. Active omega 3-amj-hjo-fish oil 850-1,400 mg capsule Take by mouth daily. Active simvastatin (ZOCOR) 40 mg tablet Take 40 mg by mouth at bedtime. Active losartan (COZAAR) 100 mg tablet Take 1 tablet (100 mg total) by mouth 1 (one) time each day. 90 tablet 3 4 Active carvediloL (COREG) 25 mg tablet Take 1 tablet (25 mg total) by mouth 2 (two) times a day with meals. 180 tablet 3 4 Active gabapentin (NEURONTIN) 100 mg capsule Take 2 capsules (200 mg total) by mouth 3 (three) times a day. Active Encounters Date Type Department Care Team Description 04/25/2025 7:45 AM EDT Ancillary Procedure [facility] [address] [facility] [address] [place] [address] 04/18/2025 Telephone Ltac, Located Within [facility] [address] [facility] [address] [place] [address] Paul Scales [place] Results (CXR) 04/15/2025 8:42 AM EDT - 04/15/2025 11:59 PM EDT Hospital Encounter [facility] Xray [address] [place] [id number] Other chest pain Discharge Disposition: Home or Self Care 04/13/2025 9:20 AM EDT Office Visit Ltac, Located Within [facility] [address] [facility] [address] [place] [address] Anmol Joyner MD Coronary artery disease involving modoc coronary artery of modoc heart without angina pectoris (Primary Dx); Other chest pain 04/13/2025 8:00 AM EDT Ancillary Procedure [facility], Located [facility] [address] [facility] [address] [place] [address] Encounter for adjustment or management of cardiac device from Last 3 Months Medical History Medical History Date Comments CVA (cerebral vascular accid ent) ([facility] V24, [facility] V28) DX:CVA (cerebral vascular a ccident) ([facility]) Epilepsy ([facility] V24, [facility] V28) DX:Epilepsy ([facility]) Hypothyroidism DX:Hypothyroidis m Major depression in partial remission ([facility] V24) 01/25/2022 DX:Major depression in parti al remission ([facility]) PMR (polymyalgia rheumatica) ([facility] V24) DX:PMR (polymyalgia rheumati ca) ([facility]) Social History Tobacco Use Types Packs/Day Years Used Date Smoking Tobacco: Never Smokeless Tobacco: Never Alcohol Use Standard Drinks/Week Comments Never 0 (1 standard drink = 0.6 oz pur e alcohol) Comments Unknown Sex and Gender Information Value Date Recorded Sex Assigned at Not on file Legal Sex Female 5:40 AM EST Gender Identity Not on file Sexual Orientation Not on file Obstetrics History Last Filed Vital Signs Vital Sign Reading Time Taken Comments Blood Pressure 150/90 04/13/2025 9:12 AM EDT Pulse 80 04/13/2025 9:12 AM EDT Temperature - - Respiratory Rate - - Oxygen Saturation 97% 04/13/2025 9:12 AM EDT Inhaled Oxygen Concentration - - Weight 66.2 kg (146 lb) 04/13/2025 9:12 AM EDT Height 154.9 cm (5' 1 ) 04/13/2025 9:12 AM EDT Body Mass Index 27.59 04/13/2025 9:12 AM EDT Plan of Treatment Upcoming Encounters Date Type Department Care Team (Late st Contact Info) Description 04/13/2026 9:00 AM EDT Ancillary Procedure [facility] [address] [facility] [address] [place] [address] Health Maintenance Due Date Last Done Comments Breast Cancer Screening 1950 DTaP,Tdap,and Td Vaccines (1 - Tdap) 1970 Pneumococcal Vaccine: 50+ Years (2 of 2 - PCV) 07/04/2011 07/04/2010 Colorectal Cancer Screening: Colonoscopy 09/29/2022 Falls Risk Assessment 09/29/2022 Hepatitis C Screening 09/29/2022 Medicare Annual Wellness Visit 09/29/2022 Osteoporosis Screening (Bone Density Screening) 09/29/2022 Social Influencers of Health Screening 09/29/2022 COVID-19 Vaccine ( season) 2024 07/17/2023, 08/10/2022, 02/08/2022, Additional history exists Depression Screening 10/27/2024 Influenza Vaccine (#1) 2025 2, 06/29/2022, 08/04/2015, Additional history exists Hypertension/CHF/CAD Annual BMP Blood Test 04/15/2026 04/15/2025 RSV Immunization Adult Patients (1 - 1-dose 75+ series) 2026 Cholesterol Screening (Lipid Panel) 04/15/2030 04/15/2025 Zoster Vaccines Completed 02/20/2024, 01/30/2023 HIB Vaccines Aged Out No longer eligi ble based on patient's age to complete this topic HPV Vaccines Aged Out No longer eligi ble based on patient's age to complete this topic Hepatitis A Vaccines Aged Out No long er eligible based on patient's age to complete this topic Hepatitis B Vaccines Aged Out No long er eligible based on patient's age to complete this topic IPV Vaccines Aged Out No longer eligi ble based on patient's age to complete this topic MMR Vaccines Aged Out No longer eligi ble based on patient's age to complete this topic Meningococcal ACWY Vaccine Aged Out N o longer eligible based on patient's age to complete this topic Meningococcal B Vaccine Aged Out No l onger eligible based on patient's age to complete this topic RSV Immunization Patients Under 20 months Aged Out No longer eligible based on patient's age to complete this topic Varicella Vaccines Aged Out No longer eligible based on patient's age to complete this topic Medical Devices Implanted Type Area Casting House Worker Device Identifier Shelf Expiration Date Model / Serial / Lot Medt-Card Maurice Xt Dr Doyle [id number] Implanted: (Quantity not on file) Cardiac Pacemaker [employer] - CARDIAC RHYTH-CRDM MAURICE XT DR DOYLE [id number] / [id number] / Medt-Card Maurice Xt Dr Doyle [id number] Implanted: (Quantity not on file) Cardiac Pacemaker [employer] - CARDIAC RHYTH-CRDM MAURICE XT DR DOYLE / [id number] / Procedures Procedure Name Priority Date/Time Associated Diagnosis Comments CARDIAC DEVICE CHECK- REMOTE- MURJ Routine 04/25/2025 7:43 AM EDT XR CHEST 2 VIEWS Routine 04/15/2025 8:53 AM EDT Other chest pain CBC WITH AUTO DIFFERENTIAL Routine 04/15/2025 8:36 AM EDT Presence of combination internal cardiac defibrillator (ICD) and pacemaker Coronary artery disease due to lipid rich plaque LIPID PANEL WITH REFLEX TO DIRECT LDL Routine 04/15/2025 8:36 AM EDT Coronary artery disease involving modoc coronary artery of modoc heart without angina pectoris BASIC METABOLIC PANEL Routine 04/15/2025 8:36 AM EDT Coronary artery disease involving modoc coronary artery of modoc heart without angina pectoris CBC AND DIFFERENTIAL Routine 04/15/2025 8:36 AM EDT Presence of combination internal cardiac defibrillator (ICD) and pacemaker Coronary artery disease due to lipid rich plaque CARDIAC DEVICE CHECK- IN CLINIC- MURJ Routine 04/13/2025 8:07 AM EDT Encounter for adjustment or management of cardiac device from Last 3 Months Results * Cardiac device check - Remote- MURJ (04/25/2025 7:43 AM EDT) Date Time Interrogation Session [id number] CV DEVICE CHECK Type Interrogation Session Remote CV DEVICE CHECK Implantable Pulse Generator Casting House Worker MDT CV DEVICE CHECK Implantable Pulse Generator Type IPG CV DEVICE CHECK Implantable Pulse Generator Model Maurice XT MRI [id number] CV DEVICE CHECK Implantable Pulse Generator Serial Number [id number] CV DEVICE CHECK Implantable Pulse Generator Implant Date 20230321 CV DEVICE CHECK Battery Remaining Longevity 121.0 CV DEVICE CHECK Battery Voltage 3.020 CV D EVICE CHECK Battery SURVEY PARTY CHIEF Trigger 2.625 CV DEVICE CHECK Battery Status Middle of Service CV DEVICE CHECK Bulmaro Statistic RA Percent Paced 34.46 CV DEVICE CHECK Bulmaro Statistic RV Percent Paced 99.48 CV DEVICE CHECK Atrial Tachy Statistic AT/AF Erie Percent 0.00 CV DEVICE CHECK Lead Channel Sensing Intrinsic Amplitude 1.875 CV DEVICE CHECK Lead Channel Setting Sensing Sensitivity 0.60 CV DEVICE CHECK Lead Channel Impedance Value 399 CV DEVICE CHECK Lead Channel Pacing Threshold Amplitude 0.625 CV DEVICE CHECK Lead Channel Pacing Threshold Pulse Width 0.4 CV DEVICE CHECK Lead Channel RA Pacing Threshold Date 2025-04-11 CV DEVICE CHECK Lead Channel Setting Pacing Amplitude 1.750 CV DEVICE CHECK Lead Channel Setting Pacing Pulse Width 0.4 CV DEVICE CHECK Lead Channel Sensing Intrinsic Amplitude 2.875 CV DEVICE CHECK Lead Channel Setting Sensing Sensitivity 0.90 CV DEVICE CHECK Lead Channel Impedance Value 475 CV DEVICE CHECK Lead Channel Pacing Threshold Amplitude 0.625 CV DEVICE CHECK Lead Channel Pacing Threshold Pulse Width 0.4 CV DEVICE CHECK Lead Channel RV Pacing Threshold Date 2025-04-11 CV DEVICE CHECK Lead Channel Setting Pacing Amplitude 2.000 CV DEVICE CHECK Lead Channel Setting Pacing Pulse Width 0.4 CV DEVICE CHECK Bulmaro Setting Mode (NBG Code) DDDR CV DEVICE CHECK Bulmaro Setting Lower Rate Limit 50 CV DEVICE CHECK Bulmaro Setting AT Mode Switch Rate 171 CV DEVICE CHECK Bulmaro Setting Maximum Tracking Rate 130 CV DEVICE CHECK Bulmaro Setting Maximum Sensor Rate 130 CV DEVICE CHECK Bulmaro Setting PAV Delay 180 CV DEVICE CHECK Bulmaro Setting ANGIE Delay 150 CV DEVICE CHECK Zone Setting Type Category AT/AF CV DEVICE CHECK Rate 171 CV DEVICE CHECK Therapies Some Rx Off CV DEVIC E CHECK Zone Setting Status Monitor CV DEVICE CHECK Zone ID 2 CV DEVICE CHECK Zone Setting Type Category VT CV DEVICE CHECK Rate 150 CV DEVICE CHECK Zone Setting Status ENABLED CV DEVICE CHECK Zone ID 6 CV DEVICE CHECK Date of Service 2025-07-04 CV DEVICE CHECK Anatomical Region Laterality Modality Device Interroga tion 04/11/2025 10:1 3 PM EDT Impressions 04/25/2025 7:37 AM EDT Normal Remote: No Events * Normal Device Function * Alerts or events: None * Battery: OK, 10.08 yrs * Sensing, impedance and thresholds reviewed * Programmed parameters reviewed * Presenting rhythm reviewed * Heart Rate Histograms reviewed * No significant changes noted Narrative Procedure Note Douglas Palma MD - 04/25/2025 IMPRESSION: Normal Remote: No Events * Normal Device Function * Alerts or events: None * Battery: OK, 10.08 yrs * Sensing, impedance and thresholds reviewed * Programmed parameters reviewed * Presenting rhythm reviewed * Heart Rate Histograms reviewed * No significant changes noted Douglas Palma MD CV IMPLANTABLE CARDIAC DEVICE PROCEDURES Final Result * XR Chest 2 Views (04/15/2025 8:53 AM EDT) Anatomical Region Laterality Modality Body Radiographic Georgina ging 04/15/2025 12:2 1 PM EDT Impressions 04/15/2025 12:22 PM EDT No acute pulmonary disease. Cardiomegaly, stable since 03/28/2019. The patient is seen to have undergone placement of a dual-chamber cardiac pacemaker, as well as sternotomy and CABG, since the prior study. Code 82915 -------- FINAL REPORT -------- Dictated By: Aj Haider Dictated Date: 04/15/2025 12:21 ET Assigned Physician: Aj Haider Reviewed and Electronically Signed By: Aj Haider Signed Date: 04/15/2025 12:22 ET Workstation ID: [id number] Transcribed By: Self Edit Transcribed Date: 04/15/2025 12:21 ET Narrative 04/15/2025 12:22 PM EDT HISTORY: The patient is a 74-year-old female with chest pain. FINDINGS: PA and lateral radiographs of the chest demonstrate that a dual- chamber cardiac pacemaker has been placed since the prior study of 03/28/2019 with the generator overlying the left mid lung and its leads appearing intact and in good position in the right atrium and right ventricle. The patient is also seen to have undergone sternotomy and coronary artery bypass surgery since the prior study. Again demonstrated are degenerative changes of the thoracic spine. The cardiac silhouette remains mildly enlarged. The aortic knob is calcified. The lungs and costophrenic angles are clear. Procedure Note Aj Haider MD - 04/15/2025 HISTORY: The patient is a 74-year-old female with chest pain. FINDINGS: PA and lateral radiographs of the chest demonstrate that adual-chamber cardiac pacemaker has been placed since the prior study of03/28/2019 with the generator overlying the left mid lung and its leadsappearing intact and in good position in the right atrium and rightventricle. The patient is also seen to have undergone sternotomy andcoronary artery bypass surgery since the prior study. Again demonstratedare degenerative changes of the thoracic spine. The cardiac silhouetteremains mildly enlarged. The aortic knob is calcified. The lungs andcostophrenic angles are clear. IMPRESSION: No acute pulmonary disease. Cardiomegaly, stable since 03/28/2019. Thepatient is seen to have undergone placement of a dual-chamber cardiacpacemaker, as well as sternotomy and CABG, since the prior study. Code 53924 -------- FINAL REPORT -------- Dictated By: Aj Haider Dictated Date: 04/15/2025 12:21 ET Assigned Physician: Aj Haider Reviewed and Electronically Signed By: Aj Haider Signed Date: 04/15/2025 12:22 ET Workstation ID: [id number] Transcribed By: Self Edit Transcribed Date: 04/15/2025 12:21 ET us Anmol Joyner MD IMG XR PROCEDURES Final R esult * Lipid panel with reflex to direct LDL (04/15/2025 8:36 AM EDT) Cholesterol 144 0 - 200 mg/dL LAB CHEMISTRY METHOD 04/15/2025 10:43 AM [facility] Triglycerides 133 0 - 150 mg/dL LAB CHEMISTRY METHOD 04/15/2025 10:43 AM [facility] HDL 55 >=40 mg/dL LAB CHEMISTRY METHOD 04/15/2025 10:43 AM [facility] LDL Calculated 62 0 - 100 mg/dL LAB CHEMISTRY METHOD 04/15/2025 10:43 AM [facility] VLDL Cholesterol Alonzo 26.6 mg/dL LAB CHEMISTRY METHOD 04/15/2025 10:43 AM [facility] Non HDL Chol. (LDL+VLDL) 89 <145 mg/dL LAB CHEMISTRY METHOD 04/15/2025 10:43 AM [facility] Chol/HDL Ratio 2.6 0.0 - 4.4 LAB CHEMISTRY METHOD 04/15/2025 10:43 AM [facility] Blood Venous blood specimen / Unknown Venipuncture / Unknown 04/15/2025 8:36 AM EDT 04/15/2025 9:58 AM EDT Anmol Joyner MD LAB BLOOD ORDERABLES Olga quan Result [facility] [address] [place] [address], * (ABNORMAL) CBC auto differential (04/15/2025 8:36 AM EDT) WBC 5.1 4.8 - 10.8 K/mcL LAB HEMETOLOGY METHOD 04/15/2025 10:25 AM EDT [facility] RBC 4.10 3.80 - 4.80 M/mcL LAB HEMETOLOGY METHOD 04/15/2025 10:25 AM EDT [facility] Hemoglobin 12.1 11.5 - 16.0 g/dL LAB HEMETOLOGY METHOD 04/15/2025 10:25 AM EDT [facility] Hematocrit 37.5 35.0 - 47.0 % LAB HEMETOLOGY METHOD 04/15/2025 10:25 AM EDT [facility] MCV 90.6 79.0 - 98.0 FL LAB HEMETOLOGY METHOD 04/15/2025 10:25 AM EDT [facility] MCH 29.2 27.0 - 32.0 pcg LAB HEMETOLOGY METHOD 04/15/2025 10:25 AM T [facility] MCHC 32.3 32.0 - 37.0 g/dL LAB HEMETOLOGY METHOD 04/15/2025 10:25 AM [facility] RDW 16.5(H) 11.0 - 15.0 % LAB HEMETOLOGY METHOD 04/15/2025 10:25 AM EDT [facility] Platelets 214 130 - 400 K/mcL LAB HEMETOLOGY METHOD 04/15/2025 10:25 AM [facility] MPV 10.6 7.0 - 11.0 FL LAB HEMETOLOGY METHOD 04/15/2025 10:25 AM [facility] NRBC 0.0 <1.0 % LAB HEMETOLOGY METHOD 04/15/2025 10:25 AM [facility] NRBC Absolute 0.00 <0.10 K/[facility] LAB HEMETOLOGY METHOD 04/15/2025 10:25 AM [facility] Neutrophils Relative 67.1 % LAB HEMETOLOGY METHOD 04/15/2025 10:25 AM [facility] Lymphocytes Relative 17.7 % LAB HEMETOLOGY METHOD 04/15/2025 10:25 AM [facility] Monocytes Relative 11.6 % LAB HEMETOLOGY METHOD 04/15/2025 10:25 AM [facility] Eosinophils Relative 2.8 % LAB HEMETOLOGY METHOD 04/15/2025 10:25 AM [facility] Basophils Relative 0.4 % LAB HEMETOLOGY METHOD 04/15/2025 10:25 AM [facility] Immature Granulocytes Relative 0.4 % LAB HEMETOLOGY METHOD 04/15/2025 10:25 AM [facility] Neutrophils Absolute 3.42 1.50 - 7.00 K/[facility] LAB HEMETOLOGY METHOD 04/15/2025 10:25 AM [facility] Lymphocytes Absolute 0.90(L) 1.00 - 5.00 K/[facility] LAB HEMETOLOGY METHOD 04/15/2025 10:25 AM [facility] Monocytes Absolute 0.59 0.20 - 1.00 K/[facility] LAB HEMETOLOGY METHOD 04/15/2025 10:25 AM [facility] Eosinophils Absolute 0.14 0.00 - 0.50 K/[facility] LAB HEMETOLOGY METHOD 04/15/2025 10:25 AM EDT [facility] Basophils Absolute 0.02 0.00 - 0.20 K/[facility] LAB HEMETOLOGY METHOD 04/15/2025 10:25 AM EDT [facility] Immature Granulocytes Absolute 0.02 0.00 - 0.03 K/[facility] LAB HEMETOLOGY METHOD 04/15/2025 10:25 AM EDT [facility] Blood Venous blood specimen / Unknown Venipuncture / Unknown 04/15/2025 8:36 AM EDT 04/15/2025 9:58 AM EDT Kenna Steve REGIONAL PROGRAM MANAGER LAB BLOOD ORDERABLES F inal Result [facility] [address] [place] [address], * Basic metabolic panel (04/15/2025 8:36 AM EDT) Sodium 140 133 - 145 mmol/L LAB CHEMISTRY METHOD 04/15/2025 10:43 AM [facility] Potassium 4.3 3.5 - 5.5 mmol/L LAB CHEMISTRY METHOD 04/15/2025 10:43 AM [facility] Chloride 106 96 - 110 mmol/L LAB CHEMISTRY METHOD 04/15/2025 10:43 AM [facility] CO2 27 21 - 32 mmol/L LAB CHEMISTRY METHOD 04/15/2025 10:43 AM [facility] Anion Gap 7 3 - 11 LAB CHEMISTRY METHOD 04/15/2025 10:43 AM [facility] Glucose 100 70 - 100 mg/dL LAB CHEMISTRY METHOD 04/15/2025 10:43 AM [facility] BUN 18 5 - 25 mg/dL LAB CHEMISTRY METHOD 04/15/2025 10:43 AM EDT [facility] Creatinine 0.96 0.50 - 1.10 mg/dL LAB CHEMISTRY METHOD 04/15/2025 10:43 AM EDT [facility] eGFR 63 >=60 mL/min/1. 73m2 LAB CHEMISTRY METHOD 04/15/2025 10:43 AM EDT [facility] Comment:Calculation based on the Chronic Kidney Disease Epidemiology Collaboration (CKD-EPI) equation refit without adjustment for race. BUN/Creatinine Ratio 18.8 LAB CHEMISTRY METHOD 04/15/2025 10:43 AM EDT [facility] Calcium 8.7 8.5 - 10.5 mg/dL LAB CHEMISTRY METHOD 04/15/2025 10:43 AM T [facility] Blood Venous blood specimen / Unknown Venipuncture / Unknown 04/15/2025 8:36 AM EDT 04/15/2025 9:58 AM EDT us Anmol Joyner MD LAB BLOOD ORDERABLES Olga l Result [facility] [address] [place] [address], * CARDIAC DEVICE CHECK- IN CLINIC- [facility] (04/13/2025 8:07 AM EDT) Date Time Interrogation Session [id number] CV DEVICE CHECK Implantable Pulse Generator Casting House Worker MDT CV DEVICE CHECK Implantable Pulse Generator Type IPG CV DEVICE CHECK Implantable Pulse Generator Model [place] XT DR DOYLE CV DEVICE CHECK Implantable Pulse Generator Serial Number [id number] CV DEVICE CHECK Implantable Pulse Generator Implant Date 20230321 CV DEVICE CHECK Battery Status Middle of Service CV DEVICE CHECK Bulmaro Statistic RA Percent Paced 32.60 CV DEVICE CHECK Bulmaro Statistic RV Percent Paced 97.40 CV DEVICE CHECK Atrial Tachy Statistic AT/AF [place]rie Percent 0.10 CV DEVICE CHECK Lead Channel Sensing Intrinsic Amplitude 2.600 CV DEVICE CHECK Lead Channel Setting Sensing Sensitivity 0.60 CV DEVICE CHECK Lead Channel Impedance Value 475 CV DEVICE CHECK Lead Channel Pacing Threshold Amplitude 0.750 CV DEVICE CHECK Lead Channel Pacing Threshold Pulse Width 0.4 CV DEVICE CHECK Lead Channel RA Pacing Threshold Date 2025-04-13 CV DEVICE CHECK Lead Channel Setting Pacing Amplitude 1.750 CV DEVICE CHECK Lead Channel Setting Pacing Pulse Width 0.4 CV DEVICE CHECK Lead Channel Sensing Intrinsic Amplitude 3.300 CV DEVICE CHECK Lead Channel Setting Sensing Sensitivity 0.90 CV DEVICE CHECK Lead Channel Impedance Value 456 CV DEVICE CHECK Lead Channel Pacing Threshold Amplitude 0.750 CV DEVICE CHECK Lead Channel Pacing Threshold Pulse Width 0.4 CV DEVICE CHECK Lead Channel RV Pacing Threshold Date 2025-04-13 CV DEVICE CHECK Lead Channel Setting Pacing Amplitude 2.000 CV DEVICE CHECK Lead Channel Setting Pacing Pulse Width 0.4 CV DEVICE CHECK Bulmaro Setting Mode (NBG Code) DDDR CV DEVICE CHECK Bulmaro Setting Lower Rate Limit 50 CV DEVICE CHECK Bulmaro Setting AT Mode Switch Rate 171 CV DEVICE CHECK Bulmaro Setting Maximum Tracking Rate 130 CV DEVICE CHECK Bulmaro Setting Maximum Sensor Rate 130 CV DEVICE CHECK Zone Setting Type Category AT/AF CV DEVICE CHECK Therapies All Rx Off CV DEVICE CHECK Zone Setting Status Monitor CV DEVICE CHECK Zone ID 2 CV DEVICE CHECK Zone Setting Type Category VT CV DEVICE CHECK Zone Setting Status Monitor CV DEVICE CHECK Zone ID 5 CV DEVICE CHECK Date of Service 2025-04-15 CV DEVICE CHECK Anatomical Region Laterality Modality Device Interroga tion 04/13/2025 Impressions 04/25/2025 7:37 AM EDT Normal In-Office: No Events * Normal Device Function * Alerts or events: None * Battery: MOS, 10.1 years * Sensing, impedance and thresholds reviewed and tested * Presenting Rhythm: AP-PRE BILLING SPECIALIST 70s * Underlying Rhythm: -VS 48 bpm * Heart Rate Histograms reviewed * Pacing and Detection Parameters were evaluated Narrative Procedure Note Douglas Palma MD - 04/25/2025 IMPRESSION: Normal In-Office: No Events * Normal Device Function * Alerts or events: None * Battery: MOS, 10.1 years * Sensing, impedance and thresholds reviewed and tested * Presenting Rhythm: AP-PRE BILLING SPECIALIST 70s * Underlying Rhythm: -VS 48 bpm * Heart Rate Histograms reviewed * Pacing and Detection Parameters were evaluated us Order Referral Cardiovascular CV IMPLANTABLE CAR DIAC DEVICE PROCEDURES Final Result from Last 3 Months Insurance [employer] Care Teams Automatic Spooler Operator Relationship Specialty Start Date End Date Nora Riddle MD [address] [facility] [address] [place], [place] [phone] PCP - General Internal Medicine 11/11/24
== END 2025-06-06 13:48 | disposition home or self-care (01) ==
LOC: HO.HSMS 13:05
PROVIDERS: PCP Internal Medicine; Visit Provider Nurse Practitioner Family
DX: R42 Dizziness and giddiness (principal); R56.9 Unspecified convulsions; F32.A Depression, unspecified; I67.1 Cerebral aneurysm, nonruptured; Z86.73 Personal history of transient ischemic attack (TIA), and cerebral infarction without residual deficits; Z86.79 Personal history of other diseases of the circulatory system
CPT/HCPCS: 99214

== ENCOUNTER 2025-06-06 13:05 | Outpatient (REF) | payer MEDICARE, SELFPAY ==
[2025-06-06 17:39] LABS: MANUAL DIFF FLAG NO
[2025-06-06 18:00] LABS: Alanine Aminotransferase 26 U/L (0-31); Albumin Level 4.2 g/dL (3.5-5.0); Alkaline Phosphatase 84 U/L (39-117); Anion Gap 15 (12-20); Aspartate Amino Transferase 34 U/L (5-31); Blood Urea Nitrogen 17 mg/dL (9-16); Calcium 9.2 mg/dL (8.4-10.2); Carbon Dioxide 28 mmol/L (22-29); Chloride 102 mmol/L (96-108); Estimated Glomerular Filt Rate 58; Potassium 4.7 mmol/L (3.3-5.1); Sodium 140 mmol/L (135-145); Total Protein 7.4 g/dL (6.5-8.0)
[2025-06-06 18:02] LABS: Hematocrit 38.1 % (37.0-47.0); Hemoglobin 12.5 g/dl (12.0-16.0); Imm Gran Abs Auto 0.02 X10*3/uL (0.00-0.03); Imm Gran Pct Auto 0.3 % (0.0-0.4); Lymphocytes Absolute Auto 1.4 X10*3/uL (1.2-4.9); Mean Corpuscular HGB Conc 32.8 g/dl (31.0-35.0); Mean Corpuscular Hemoglobin 30.0 pg (27.0-33.0); Mean Corpuscular Volume 91.4 fL (80.0-98.0); NRBC Abs Auto 0.000 X10*3/uL (0.0-0.012); NRBC Pct Auto 0.0 /100WBC (0.0-0.2); Platelet Count 232 X10*3/uL (160-400); Red Blood Count 4.17 X10*6/uL (4.20-5.50); White Blood Count 6.1 X10*3/uL (4.8-10.8)
[2025-06-09 19:09] LABS: Lamotrigine Lamictal 10.2 mcg/mL (2.5-15.0)
== END 2025-06-06 13:06 | disposition home or self-care (01) ==
LOC: HO.HKASLDS 13:05
PROVIDERS: PCP Internal Medicine; Visit Provider Nurse Practitioner Family
DX: R42 Dizziness and giddiness (principal); R56.9 Unspecified convulsions; F32.A Depression, unspecified; I67.1 Cerebral aneurysm, nonruptured; Z86.73 Personal history of transient ischemic attack (TIA), and cerebral infarction without residual deficits; Z86.79 Personal history of other diseases of the circulatory system; Z79.84 Long term (current) use of oral hypoglycemic drugs; Z79.82 Long term (current) use of aspirin; Z79.899 Other long term (current) drug therapy
CPT/HCPCS: 36415; 80053; 80175; 85025; 99212